=== PATIENT | female | born 1995 | race Caucasian/White ===

== ENCOUNTER 2020-10-03 17:41 | Emergency (ER) | payer BC, SELFPAY ==
[2020-10-03 20:35] VITALS: BP 147/108; PULSE 96; RESP 18; TEMP 36.6; O2SAT 99; BMI 57.4
--- NOTE | 2020-10-03 21:11 | ED.WOUNDLAC ---
HPI - Wound/Laceration General Chief Complaint: Wound/Laceration Stated Complaint: laceration Time Seen by Provider: 10/03/20 21:06 Source: patient Mode of arrival: ambulatory History of Present Illness HPI narrative: This is a 25-year-old female who presents after sustaining a laceration to the palmar MTP of the left index finger while cutting of lower. She states her last tetanus was in 2012. She denies any numbness or tingling into the distal aspect of the left index finger Related Data Allergies Allergy/AdvReac Type Severity Reaction Status Date / Time No Known Allergies Allergy Verified 10/03/20 21:16 Review of Systems Review of Systems: Pertinent positives and negatives as stated in HPI 10 point review systems otherwise negative. PMFSH Past Medical History Source: nursing notes reviewed Medical History Depression Herpes genitalia Hypertension Social History Social History Smoking Status: Never smoker Use of substances other than those prescribed or required for medical reasons: No Advance Directives: No Advance Directives Information Provided: Yes Physical Exam Vital Signs: Vital Signs: Last Vital Signs Temp 97.8 F 10/03/20 20:35 Pulse 96 10/03/20 20:35 Resp 18 10/03/20 20:35 BP 147/108 H 10/03/20 20:35 Pulse Ox 99 10/03/20 20:35 Body Mass Index 57.4 VITAL SIGNS: Reviewed. GENERAL: Well developed, well nourished, in no acute distress. OROPHARYNX: no oral lesions noted, posterior pharynx clear and non-erythematous without noted tonsillar enlargement/erythema/exudates NECK: Supple, no adenopathy LUNGS: Normal breath sounds. No adventitious sounds or accessory muscle use. SpO2<99> CARDIOVASCULAR: Regular rate and rhythm without noted murmurs, no JVD or lower extremity edema. ABDOMEN: Soft, non-tender, non-distended with bowel sounds. No rigidity. No guarding. No palpable masses or hernias noted EXTREMITIES: 3 cm laceration to the palmar MCP of the left index finger, hemostatic, capillary refill less than 3 seconds, full range of motion. SKIN: 3 cm laceration, hemostatic, NEUROLOGIC: Alert and oriented x 4. Sensation intact in the left distal index finger Course Course Course Narrative: This is a 25-year-old female with history and clinical presentation this is with simple laceration, 3 cm to the left index finger base. For patient received Tdap and laceration was repaired please see procedure note for details. Procedures Laceration Laceration 1: Site: hand (Base, palmar, left index finger) Side (If applicable): left Size (cm): 3 Description: linear Depth: simple, single layer Local Anesthetic: lidocaine 2% Amount of anesthesia used (mL): 2 Pre-repair: wound explored, irrigated extensively and deep structures intact Skin layer closed with: nylon Size (cm): 4-0 Number of sutures: 6 Technique: simple, interrupted (3), horizontal mattress (3) and other Discharge Plan Discharge Clinical Impression: Laceration Patient Disposition: Home, Self-Care Instructions: Care For Your Stitches (ED), Finger Laceration (ED) Additional Instructions: 1. Tylenol 1000 mg, orally, every 6 hours as needed for pain control. Do not exceed 4000 mg within 24 hours. 2. Ibuprofen 400 mg, orally with milk or food, every 6 hours as needed for pain control. 3. May cleanse area with soap and water and blot dry, wear gloves as appropriate for your job. 4. Return to either your primary care provider or this emergency department in 5 -7 days for suture removal. You had 3 retention sutures and 3 interrupted sutures placed today for a total of 6. Please return to the emergency department should you notice any redness swelling or discharge. 5. You received the Tdap vaccine today. The patient and/or family acknowledge understanding of results (as applicable), diagnosis, treatment plan, need for follow up, and symptoms that should prompt a return to the emergency room. Referrals: Cyndi Holm MD [Primary Care Provider] - 2 days (Re-evaluation and management of suture removal in 5-7 days.)
[2020-10-03] MEDS: Lidocaine HCl 2 % MPF 5 ML VIAL INFILTRATI (21:15)
--- NOTE | 2020-10-03 21:19 | PC.NURSE ---
pt states has covid vaccine 1 week ago. pt had question about tdap having interaction. Dr Renae aware. tdap not given. Waiting for Dr Renae to ok tdap.
--- NOTE | 2020-10-03 21:56 | PC.NURSE ---
DRESSED WOUND. KERLEX AND BACITRACIN APPLIED. PATIENT GIVEN SOME SUPPLIES FOR HOME.
[2020-10-03] MEDS: Bacitracin Oint 14 GM TUBE 1 APPL TOPICAL (22:07)
== END 2020-10-03 22:29 | disposition home or self-care (01) ==
PROVIDERS: Emergency Provider Student in an Organized Health Care Education/Training Program; PCP Internal Medicine
DX: S61.211A Laceration without foreign body of left index finger without damage to nail, initial encounter (principal); W26.9XXA Contact with unspecified sharp object(s), initial encounter; Y93.9 Activity, unspecified; Y92.9 Unspecified place or not applicable; Y99.9 Unspecified external cause status
CPT/HCPCS: 12002; 90471; 90715; 99284

== ENCOUNTER 2020-10-10 11:09 | Emergency (ER) | payer BC, SELFPAY ==
[2020-10-10 12:19] VITALS: PULSE 90; RESP 16; TEMP 37.1; O2SAT 97; BMI 56.9
--- NOTE | 2020-10-10 12:21 | ED.WOUNDLAC ---
HPI - Wound/Laceration General Chief Complaint: General Medical Stated Complaint: suture removal Time Seen by Provider: 10/10/20 12:18 Source: patient Mode of arrival: ambulatory Limitations: no limitations History of Present Illness HPI narrative: 25-year-old female here for suture removal. The patient tells me she was here 7 days ago for 6 stitches placed in the left hand. No complaints. No fevers or chills. Onset (ago): week(s) (1 week) Extremity Location: left: hand Place: home Patient tetanus UTD: Yes Associated symptoms: none Related Data Allergies Allergy/AdvReac Type Severity Reaction Status Date / Time No Known Allergies Allergy Verified 10/03/20 21:16 Review of Systems Review of Systems: Yes all other systems are reviewed and are negative Constitutional: Constitutional: Reports no additional constitutional complaints, Denies body ache(s), Denies chills, Denies fever(s), Denies headache(s) and Denies weakness Eyes: Eyes: Reports no additional eye complaints and Denies change in vision ENT: Reports system reviewed and no additional complaints, except as documented, Denies dizziness, Denies headache(s), Denies nasal congestion, Denies nasal discharge and Denies neck pain Cardiovascular: Cardiovascular: Reports no additional cardiovascular complaints, Denies chest pain, Denies leg edema and Denies dyspnea Respiratory: Respiratory: Reports no additional respiratory complaints, Denies cough and Denies dyspnea Gastrointestinal: Gastrointestinal: Reports no additional gastrointestinal complaints, Denies abdominal pain, Denies diarrhea, Denies nausea and Denies vomiting Genitourinary: Genitourinary: Reports no additional female genitourinary complaints and Denies urinary incontinence Musculoskeletal: Musculoskeletal: Reports no additional musculoskeletal complaints, Denies back pain, Denies arthralgias, Denies joint swelling, Denies neck pain, Denies numbness and Denies tingling Integumentary/Breasts: Skin/Breast: Reports system reviewed and no additional complaints, except as docu and Denies rash Neurologic: Denies Abnormal speech present, Denies dizziness, Denies headache(s), Denies numbness, Denies tingling and Denies weakness PMFSH Past Medical History Attestation statement: The following information was validated with the patient. Source: old records reviewed and nursing notes reviewed Medical History Depression Herpes genitalia Hypertension Social History Social History Alcohol intake: never Smoking Status: Never smoker Use of substances other than those prescribed or required for medical reasons: No Advance Directives: No Advance Directives Information Provided: No Physical Exam Vital Signs: Vital Signs: Last Vital Signs Temp 98.8 F 10/10/20 12:19 Pulse 90 10/10/20 12:19 Resp 16 10/10/20 12:19 Pulse Ox 97 10/10/20 12:19 Body Mass Index 56.9 Const: General: cooperative, healthy appearing, comfortable and no acute distress Orientation/consciousness: patient oriented x3 Limitations: no limitations HENMT: Head: Yes normal to inspection Ears: hearing grossly normal bilaterally General nose exam: Normal external nose present Face and sinus: Yes normal facial exam Mouth: Normal oral and palatal mucosa present Throat: Yes posterior oropharynx normal Eyes: General: appearance normal, both eyes and all related structures Pupils: Equal, round and reactive pupils present Neck: Neck: Yes normal visual inspection Chest: Chest palpation & inspection: normal inspection of the chest Resp: Effort & Inspection: normal respiratory effort Auscultation: clear to auscultation bilaterally Cardio: Rate: regular rate Rhythm: regular rhythm Peripheral pulses: Peripheral pulses 2+ throughout GI: Inspection: Yes normal to inspection Palpation (GI): Soft to palpation and nontender Auscultation: normal bowel sounds Back/Spine/Pelvis: Thoracic/Lumbar Spine: thoracic and lumbar spine normal to inspection Skin: Other: At the base of the 4th and 5th digits on the palmar aspect there is a healing incision with sutures. No erythema, drainage General skin exam: no rashes or lesions noted Neuro: General: patient oriented x3, no focal motor deficits and normal sensation to monofilament Cranial nerves: Yes Equal, round and reactive pupils present Cognition (Neuro): normal cognition Speech: No Abnormal speech present Gait exam (Neuro): Normal gait present Motor exam (neuro): 5/5 motor strength present throughout Extrem: General: Yes normal to inspection Course Course Course Narrative: Six sutures removed in the left hand. Mild bleeding noted. Controlled with direct pressure. Wound was cleansed with alcohol and a bandage was applied. Reviewed worrisome signs and symptoms and when to return to the emergency department. Comfortable discharge home. Discharge Plan Discharge Clinical Impression: Visit for suture removal Patient Disposition: Home, Self-Care Instructions: Stitches Removal (ED) Additional Instructions: wash with soap and water daily topcal antibiotic ointment Referrals: Cyndi Holm MD [Primary Care Provider] - 2 days Interventions: ED Discharge Assessment Last Done: 10/10/20 12:32 Discharge Date/Time: 10/10/20 12:34
== END 2020-10-10 12:34 | disposition home or self-care (01) ==
LOC: HO.ED 12:33
PROVIDERS: Emergency Provider Emergency Medicine; PCP Internal Medicine
DX: Z48.02 Encounter for removal of sutures (principal)
CPT/HCPCS: 99283; 99284

== ENCOUNTER → 2021-02-13 08:23 | Outpatient (BNVA) | payer BC, SELFPAY | PROVIDERS: PCP Internal Medicine; Visit Provider Physician Assistant ==

== ENCOUNTER 2021-02-27 10:16 | Outpatient (REF) | payer BC, SELFPAY ==
[2021-02-27 11:19] LABS: MANUAL DIFF FLAG NO
[2021-02-27 12:01] LABS: Basophils Percent Auto 0.4 % (0-2); Eosinophils Absolute Auto 0.4 X10*3/uL (0.0-0.4); Eosinophils Percent Auto 5.2 % (0-4); Hematocrit 39.9 % (37-47); Hemoglobin 12.7 g/dl (12.0-16.0); Imm Gran Abs Auto 0.02 X10*3/uL (0.00-0.03); Imm Gran Pct Auto 0.3 % (0.0-0.4); Lymphocytes Absolute Auto 2.1 X10*3/uL (1.2-4.9); Lymphocytes Percent Auto 26.8 % (20-40); Mean Corpuscular HGB Conc 31.8 g/dl (31.0-35.0); Mean Corpuscular Hemoglobin 27.4 pg (27.0-33.0); Monocytes Absolute Auto 0.4 X10*3/uL (0.1-1.2); Monocytes Percent Auto 5.7 % (2-11); Neutrophils Absolute Auto 4.8 X10*3/uL (2.0-8.3); Neutrophils Percent Auto 61.6 % (45-73); Platelet Count 427 X10*3/uL (160-400); Red Blood Count 4.64 X10*6/uL (4.20-5.50); Red Cell Distribution Width 13.5 % (11.0-16.0); White Blood Count 7.7 X10*3/uL (4.8-10.8)
[2021-02-27 12:09] LABS: Alanine Aminotransferase 49 U/L (0-31); Albumin Level 4.3 g/dL (3.5-5.0); Alkaline Phosphatase 82 U/L (39-117); Anion Gap 12 (12-20); Aspartate Amino Transferase 21 U/L (5-31); Bilirubin Total 0.6 mg/dL (0.0-1.0); Blood Urea Nitrogen 11 mg/dL (9-16); C Reactive Protein 0.75 mg/dL (< or = 0.50); Calcium 9.4 mg/dL (8.4-10.2); Carbon Dioxide 24 mmol/L (22-29); Chloride 106 mmol/L (96-108); Cholesterol 213 mg/dL; Estimated Glomerular Filt Rate > 60; Glucose Fasting 90 mg/dL (60-99); HDL Cholesterol 45 mg/dL; Iron 68 mcg/dL (30-160); LDL Cholesterol Calculated 149 mg/dl; Percent Iron Saturation 20 % (15-50); Potassium 4.4 mmol/L (3.3-5.1); Sodium 138 mmol/L (135-145); Total Iron Binding Capacity 336 mcg/dL (228-428); Total Protein 6.7 g/dL (6.5-8.0); Triglycerides 95 mg/dL; Unsaturated Iron Binding 268 ug/dL
[2021-02-27 12:13] LABS: Ferritin 40 ng/mL (10-122); TSH reflex Free T4 1.98 uIU/mL (0.32-4.0); Vitamin D 25-OH Total 26.5 ng/mL (>30)
[2021-02-27 12:21] LABS: Estimated Average Glucose 108 mg/dL; Hemoglobin A1c % 5.4 %
[2021-02-27 13:32] LABS: Folate > 20.0 ng/mL (> or = 4.0); Vitamin B12 477 pg/mL (200-900)
[2021-02-28 18:56] LABS: Insulin Level Total 13.4 uIU/mL
[2021-03-01 13:32] LABS: Calcium (PTHI) 9.6 mg/dL (8.6-10.2); PTHI 28 pg/mL (14-64)
[2021-03-02 19:02] LABS: Vitamin B1 15 nmol/L (8-30)
[2021-03-02 19:52] LABS: Zinc 100 mcg/dL (60-130)
[2021-03-02 20:37] LABS: Vitamin A 41 mcg/dL (38-98)
== END 2021-02-27 10:17 | disposition home or self-care (01) ==
LOC: HO.LAB 10:16
PROVIDERS: Absent Provider Internal Medicine; PCP Internal Medicine; Visit Provider Physician Assistant
DX: E66.01 Morbid (severe) obesity due to excess calories (principal); Z68.43 Body mass index [BMI] 50.0-59.9, adult
CPT/HCPCS: 36415; 80053; 80061; 82306; 82607; 82728; 82746; 83036; 83525; 83540; 83970; 84425; 84443; 84590; 84630; 85025; 86140

== ENCOUNTER → 2021-03-13 09:12 | Outpatient (BNVA) | payer BC, SELFPAY | PROVIDERS: PCP Internal Medicine; Visit Provider Dietitian, Registered | DX: E66.01 Morbid (severe) obesity due to excess calories (principal); Z68.43 Body mass index [BMI] 50.0-59.9, adult | CPT/HCPCS: 97802 ==

== ENCOUNTER 2022-07-14 10:27 | Emergency (ER) | payer OTHER, SELFPAY ==
[2022-07-14 10:31] VITALS: BP 183/93; PULSE 127; RESP 20; TEMP 36.4; O2SAT 97; BMI 57.1
--- NOTE | 2022-07-14 10:38 | PC.NURSE ---
ICE PACK GIVEN
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
[2022-07-14 11:56] VITALS: BP 149/80; PULSE 128; RESP 18; O2SAT 97
== END 2022-07-14 12:41 | disposition home or self-care (01) ==
PROVIDERS: Emergency Provider Emergency Medicine
DX: G89.11 Acute pain due to trauma (principal); M79.604 Pain in right leg
CPT/HCPCS: 73562; 99282; 99283

== ENCOUNTER 2022-07-30 08:21 | Outpatient (REF) | payer OTHER, SELFPAY ==
--- NOTE | ~2022-07-30 | XR_ITS ---
EXAMINATION: XR KNEE AP STANDING CLINICAL INFORMATION: Pain in right COMPARISON: 07/14/2022 TECHNIQUE: AP bilateral standing view of the knees and sunrise view of right knee was obtained. FINDINGS: Bones are well-mineralized there is mild narrowing of medial compartment of right knee joint and there is mild narrowing of lateral compartment of patellofemoral joint. XR/XR knee standing BI IMPRESSION: Mild changes as reported.
--- NOTE | ~2022-07-30 | XR_ITS ---
EXAMINATION: XR KNEE AP STANDING CLINICAL INFORMATION: Pain in right COMPARISON: 07/14/2022 TECHNIQUE: AP bilateral standing view of the knees and sunrise view of right knee was obtained. FINDINGS: Bones are well-mineralized there is mild narrowing of medial compartment of right knee joint and there is mild narrowing of lateral compartment of patellofemoral joint. XR/XR knee RT 1V IMPRESSION: Mild changes as reported.
== END 2022-07-30 08:22 | disposition home or self-care (01) ==
LOC: HO.HOSX 08:21
PROVIDERS: Visit Provider Physician Assistant
DX: M25.561 Pain in right knee (principal); M25.562 Pain in left knee
CPT/HCPCS: 73560; 73565

== ENCOUNTER 2022-12-05 07:00 | Outpatient (RCR) | payer OTHER, SELFPAY ==
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
--- NOTE | 2022-12-05 09:42 | MHC.PT.DC ---
[facility] [place] [facility] [place] Office [address] Vicente Edmondson [address] [phone] F: [phone] F: [phone] F: [phone] F: [phone] Physical Therapy Discharge Report Diagnosis: PF DISORDER OF RIGHT KNEE Date of Surgery: Date of Evaluation: 11/15/22 Date of Discharge: 12/05/22 Treatments to Date: 7 Cancellations to Date: 0 No Shows to Date: 0 Discharge Status: Achieved Goals Improved Function Independent with HEP Patient Elected to Stop Discharge Summary: Pt HAS PROGRESSED WELL IN PT FOR HER Rt KNEE PFPS-> SHE HAS IMPROVED STRENGTH, AROM, FLEXIBILITY, AND MOST IMPORTANTLY, SHE HAS IMPROVED FUNCTIONAL MOBILITY AND IS MOTIVATED TO CONT W HER FITNESS ROUTINE. AT THIS TIME THE Pt IS REQUESTING D/C FROM PT DUE TO HER INSURANCE CO-PAY WELL HER TIGHT WORK/ SCHOOL SCHEDULES. HER LEFI SCORE CONFIRMS SIGNIF PROGRESS-> IT WAS 32/80 AT EVAL (11/15/22) AND TODAY AT D/C, 50/80. Electronically signed by: LUIS FELIPE VALENCIA,PT Please sign and return to therapist. Thank you for your referral.
== END 2022-12-05 09:43 | disposition home or self-care (01) ==
LOC: HO.PT 07:00
PROVIDERS: Visit Provider Physician Assistant
DX: M22.2X1 Patellofemoral disorders, right knee (principal)
CPT/HCPCS: 97110; 97140; 97162

== ENCOUNTER → 2023-02-22 07:55 | Outpatient (BNVA) | payer OTHER, SELFPAY | PROVIDERS: Visit Provider Physician Assistant ==

== ENCOUNTER 2023-03-19 07:30 | Outpatient (REF) | payer OTHER, SELFPAY ==
[2023-03-21 11:42] LABS: H Pylori Breath Test Negative (Negative)
== END 2023-03-19 07:31 | disposition home or self-care (01) ==
LOC: HO.LNP 07:30
PROVIDERS: Visit Provider Physician Assistant
DX: Z01.818 Encounter for other preprocedural examination (principal); E66.01 Morbid (severe) obesity due to excess calories; I10 Essential (primary) hypertension; F39 Unspecified mood [affective] disorder; Z87.42 Personal history of other diseases of the female genital tract
CPT/HCPCS: 83013

== ENCOUNTER → 2023-03-19 12:56 | Outpatient (BNVA) | payer OTHER, SELFPAY | PROVIDERS: Visit Provider Physician Assistant ==

== ENCOUNTER → 2023-04-12 08:45 | Outpatient (BNVA) | payer OTHER, SELFPAY | PROVIDERS: Visit Provider Dietitian, Registered | DX: E66.01 Morbid (severe) obesity due to excess calories (principal); Z71.3 Dietary counseling and surveillance | CPT/HCPCS: 97802 ==

== ENCOUNTER 2023-04-16 09:06 | Outpatient (AMB) | payer OTHER, SELFPAY ==
--- NOTE | 2023-04-16 08:30 | A.OFFVIS_ITS ---
Intake VS Expanded 04/16/23 08:52 Height 5 ft 4 in Weight 356 lb BMI 61.1 Intake Visit Reasons: VIDEO F/U SWL Allergies No Known Allergies Allergy (Verified 03/19/23 14:10) HPI HPI Comments History of Present Illness Details This is the patients second appt for SWL. Starting weight was 356.8 lbs on 03/19/23. TBWL is 6 lbs. Meal plan: 8am - Ensure Herb or bar 10am - either bar or shake - alternates with 8am 12:30- Ensure Herb 3:30 - Ensure Herb 7pm - last night had cheeseburgers with rolls and chip, chips (doesn't know what to eat) After dinner - still having ice cream OR yogurt container and blueberries Exercise plan: M, W, F at gym. Treadmill or Elliptical or Bike . Treadmill ? calories or any info.PF - around circuit room, UE - 30- 80, 2 sets of 15. Pre op work up completed as follows: SWL classes - appts - Jagruti April 19, states has not seen a therapist for a long time. RD appts - needs follow up H pylori - negative Labs, CXR and ECG - not done yet ULS and UGI - May 22 [facility] Medical History BMI 50.0-59.9, adult Depression Herpes genitalia Hx of pilonidal cyst Hypertension Morbid obesity Vitamin B12 deficiency Vitamin D deficiency Surgical History History of surgical removal of pilonidal cyst Hx of oral surgery Hx of wisdom tooth extraction Family History Mother Hypertension Depression Hyperlipidemia Father No problems noted. Brother No problems noted. Daughter No problems noted. 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 States doesn't know what to eat. I recommended that she review the nutrition classes again and discussed lean protein options ad vegetables with her. Exercise - changed to cardio - elliptical her choice, 4d/ week for a t least [address] exercise to 15 reps, 3 sets but lower the weight she is using. When asked about when she plans to get the labs and such done - i have no idea . We discussed that she needs to get them done UGO. Other appts reviewed with her. Next appt scheduled with aggie 3 weeks. Patient is still morbidly obese and is not considered stable at this time. I spent 30 minutes in total speaking with the patient via video conference counseling , reviewing records and charting in patients chart. . (2) Mood disorder: Code(s): F39 - Unspecified mood [affective] disorder Telehealth Telehealth Location of provider rendering services: practice address Location of patient: address on file Patient Identification confirmed using: Name, : Yes Telehealth method: video Patient verbally consented to treatment: Yes Patient verbally consented to billing insurance company: Yes Patient informed of any privacy concerns related to visit: Yes Coding Level of Care Code Tele Est Pt Level 4 (01915) Diagnoses Morbid obesity E66.01 Mood disorder F39
[2023-04-16 08:52] VITALS: BMI 61.1
== END 2023-04-16 09:07 | disposition home or self-care (01) ==
LOC: HO.HBS 09:06
PROVIDERS: Visit Provider Physician Assistant
DX: E66.01 Morbid (severe) obesity due to excess calories (principal); Z68.44 Body mass index [BMI] 60.0-69.9, adult; F39 Unspecified mood [affective] disorder
CPT/HCPCS: 99214

== ENCOUNTER → 2023-04-16 09:06 | Outpatient (BNVA) | payer OTHER, SELFPAY | PROVIDERS: Visit Provider Physician Assistant | DX: E66.01 Morbid (severe) obesity due to excess calories (principal); F39 Unspecified mood [affective] disorder ==

== ENCOUNTER 2023-04-19 08:18 | Outpatient (REF) | payer OTHER, SELFPAY ==
--- NOTE | ~2023-04-19 | XR_ITS ---
EXAMINATION: XR CHEST CLINICAL INFORMATION: Morbid obesity. COMPARISON: None available. TECHNIQUE: 2 views of the chest were obtained. FINDINGS: No significant abnormality is noted involving the heart, lungs, mediastinum, bony thorax or soft tissues. XR/XR chest 2V IMPRESSION: Unremarkable examination.
--- NOTE | 2023-04-19 08:26 | ECG_ITS ---
Test Reason : e66.01 Blood Pressure : / mmHG Vent. Rate : 074 BPM Atrial Rate : 074 BPM P-R Int : 130 ms QRS Dur : 086 ms QT Int : 388 ms P-R-T Axes : 031 058 047 degrees QTc Int : 430 ms Normal sinus rhythm Normal ECG No previous ECGs available Referred By: Laura Mendes Electronically Signed By:THAI WASHINGTON MD
[2023-04-19 08:39] LABS: MANUAL DIFF FLAG NO
[2023-04-19 09:47] LABS: Basophils Percent Auto 0.4 % (0-2); Eosinophils Absolute Auto 0.4 X10*3/uL (0.0-0.4); Eosinophils Percent Auto 4.6 % (0-4); Hematocrit 41.4 % (37.0-47.0); Hemoglobin 13.3 g/dl (12.0-16.0); Imm Gran Abs Auto 0.03 X10*3/uL (0.00-0.03); Imm Gran Pct Auto 0.4 % (0.0-0.4); Lymphocytes Absolute Auto 2.1 X10*3/uL (1.2-4.9); Lymphocytes Percent Auto 24.7 % (20-40); Mean Corpuscular HGB Conc 32.1 g/dl (31.0-35.0); Mean Corpuscular Hemoglobin 27.1 pg (27.0-33.0); Mean Corpuscular Volume 84.5 fL (80.0-98.0); Mean Platelet Volume 8.6 fL (9.4-12.3); Monocytes Absolute Auto 0.5 X10*3/uL (0.1-1.2); Monocytes Percent Auto 6.5 % (2-11); Neutrophils Absolute Auto 5.3 x10*3/uL (2.0-8.3); Neutrophils Percent Auto 63.4 % (45-73); Platelet Count 431 X10*3/uL (160-400); Red Cell Distribution Width 13.7 % (11.0-16.0); White Blood Count 8.3 X10*3/uL (4.8-10.8)
[2023-04-19 09:55] LABS: Estimated Average Glucose 108 mg/dL; Hemoglobin A1c % 5.4 %
[2023-04-19 10:47] LABS: Alanine Aminotransferase 90 U/L (0-31); Albumin Level 4.4 g/dL (3.5-5.0); Alkaline Phosphatase 75 U/L (39-117); Anion Gap 14 (12-20); Aspartate Amino Transferase 42 U/L (5-31); Bilirubin Total 0.6 mg/dL (0.0-1.0); Blood Urea Nitrogen 13 mg/dL (9-16); C Reactive Protein 1.19 mg/dL (< or = 0.50); Calcium 9.7 mg/dL (8.4-10.2); Carbon Dioxide 25 mmol/L (22-29); Chloride 105 mmol/L (96-108); Cholesterol 245 mg/dL; Estimated Glomerular Filt Rate > 60; Glucose Random 111 mg/dL (60-115); HDL Cholesterol 44 mg/dL; Iron 68 mcg/dL (30-160); LDL Cholesterol Calculated 184 mg/dl; Percent Iron Saturation 21 % (15-50); Potassium 4.3 mmol/L (3.3-5.1); Sodium 140 mmol/L (135-145); Total Iron Binding Capacity 323 mcg/dL (228-428); Total Protein 7.5 g/dL (6.5-8.0); Triglycerides 89 mg/dL; Unsaturated Iron Binding 255 ug/dL
[2023-04-19 10:57] LABS: Ferritin 82 ng/mL (10-122); TSH reflex Free T4 4.11 uIU/mL (0.32-4.0); Vitamin D 25-OH Total 54.2 ng/mL (>30)
[2023-04-19 11:08] LABS: Folate 15.3 ng/mL (> or = 4.0); Vitamin B12 734 pg/mL (200-900)
[2023-04-19 14:35] LABS: Free T4 (Free Thyroxine) 0.82 ng/dL (0.71-1.85); Insulin 23 uU/mL (2-29)
[2023-04-22 15:24] LABS: Calcium (PTHI) 9.4 mg/dL (8.6-10.2); PTHI 52 pg/mL (16-77)
[2023-04-24 05:59] LABS: Zinc 83 mcg/dL (60-130)
[2023-04-25 09:33] LABS: Vitamin B1 7 nmol/L (8-30)
[2023-04-25 17:23] LABS: Vitamin A 46 mcg/dL (38-98)
== END 2023-04-19 08:19 | disposition home or self-care (01) ==
LOC: HO.XRAY 08:18
PROVIDERS: Visit Provider Physician Assistant
DX: Z01.818 Encounter for other preprocedural examination (principal); E66.01 Morbid (severe) obesity due to excess calories; F39 Unspecified mood [affective] disorder; I10 Essential (primary) hypertension; Z87.42 Personal history of other diseases of the female genital tract
CPT/HCPCS: 36415; 71046; 80053; 80061; 82306; 82607; 82728; 82746; 83036; 83525; 83540; 83970; 84425; 84439; 84443; 84590; 84630; 85025; 86140; 93005

== ENCOUNTER → 2023-04-19 08:26 | Outpatient (BNV) | payer OTHER, SELFPAY | PROVIDERS: Visit Provider Internal Medicine Cardiovascular Disease | DX: I10 Essential (primary) hypertension (principal) | CPT/HCPCS: 93010 ==

== ENCOUNTER 2023-04-19 16:30 | Outpatient (AMB) | payer OTHER, SELFPAY ==
--- NOTE | 2023-04-19 16:32 | A.OFFWM_ITS ---
Intake Intake Visit Reasons: VIDEO BH Intake Allergies No Known Allergies Allergy (Verified 03/19/23 14:10) [facility] Medical History BMI 50.0-59.9, adult Depression Herpes genitalia Hx of pilonidal cyst Hypertension Morbid obesity Vitamin B12 deficiency Vitamin D deficiency Surgical History History of surgical removal of pilonidal cyst Hx of oral surgery Hx of wisdom tooth extraction Family History Mother Hypertension Depression Hyperlipidemia Father No problems noted. Brother No problems noted. Daughter No problems noted. 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 Initially patient was open and active, however after couple minutes she turned guarded and defensive, she was no open to provide concrete answers and therapist had to ask questions in different ways multiple times to get required answers as part of the assessment. Mental status exam is unclear as patient declined to show herself during video- call. She was also guarded about her mental health history and did not provided answers to questions asked. Pt has also denied any release/request of her medical records to confirm mental health diagnosis and/or status and when proposed a f/up as part of building rapport and facilitate support with weight-loss journey patient declined and stated that I will only consent any release or a follow up if there will be consequences or if that's the only way to get surgery . Per this encounter it is unclear about client's readiness for surgery, her current challenges with food, eating behavior, and any support or protective factors that could benefit her after surgery, thus this provider can not provide the behavioral health clearance. Presenting Concerns Referral Source WMP Provider. PT sees Laura Yung Reason for referral Completion of behavioral health assessment as part of process for weight-loss surgery. Precipitating Event Obesity. Living Situation Current Living Situation Rent Comments Pt Reported she lives with people with legs , did not describe any relationship with them when asked if they were relatives, roommates and/or if she was living in a group/supportive home. Food/Weight/Diet Expectations of change PT would like to be around 125Lbs. History/Relationship with food PT reports she doesn't have a good relationship with food. Before started the program she used to have 3 meals and eating/snacking in between meals. States her meals will vary, she loves chicken, but doesn't eat vegetables. Pt was not open to provide detailed information about meal schedule and/or example of meals or snacks. Answers were general, for example anything people eat PT did not answer clearly the 2 first questions around binge eating and stated that automobile service writer could monica she provider was comfortable with, however it was explained that answers needed to be according to patient's experience and not the provider's experience. History/Relationship with weight PT reports she has always been overweight. When she was 18 she was around 200Lbs. She's not aware of when it got out of control. History/Relationship with dieting PT states she has tried weight watchers, counting calories, exercise, talking to a mold release worker. She doesn't remember how much weight she has lost and/or for how long she sticks to the program. Binge Eating Do you eat large amounts of food rapidly and typically alone? Yes Night Eating Do you wake up at least once during the night to eat? Yes If you wake up in the night, do you find that it is necessary to eat something in order to fall back asleep? Yes Do you have little or no appetite in the morning and feel very hungry in the evening, often overeating between dinner and when you go to bed? Yes Social History Family history and relationship Single. Pt has 2 siblings Parents are alive. PT reports she has communication with her family. 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 Developmental history and status None reported. Social support Family, some friends. Community support None. Jehovah'S Witness/Spirituality Bahai. Cultural/Ethnic information Described as [place]. Legal Involvement and History Current or historical involvement with the legal system? None reported. Education Highest grade completed 12th grade. Preferred learning style Learn by doing Currently enrolled in educational program? No Interested in further educational program? Yes (When asked this question she said: sure but also said she is not sure about what to do. ) Educational Interests/Skills I have no skills Employment Employment Status [employer] (Works at [employer]. PT did not specified her role and suggested this provider to write what provider wanted about her job position.) Wants help to find employment? No Meaningful activities PT reports she doesn't have any hobbies. Financial Situation Describe current financial situation Often struggles with finance Service Service? No Mental Health and Addiction Treatment Current/Past substance abuse? No Current/Past addictive behavior concerns? No Psychiatric history PT reports she has been in therapy before but states she doesn't remember details of it and when was her last time in therapy. She did not provided information about any past hospitalizations, crisis or safety concerns. PT confirmed she takes Fluoxetine 20mg, Vyvanse 20mg (for over-eating). When asked about who prescribes her medication she said the provider to to look in the database to get access to who prescribes, however this provider explains her we don't have access, and then she denies providing with further information. PT declined any release or consent to obtain her mental health records. Medical and Physical Health Summary Additional Medical History not covered in history None reported. Sexual History concerns None reported. Pain Screening Current pain? Yes Pain in the last few months? Yes Comments When questiones about her pain she said The type of pain that hurts . When asked about where it hurts she said everywhere Medications Is the patient compliant with medications? Yes Does the patient have Arrington Guardian in place? Not applicable Does the patient use complimentary health approaches? No Trauma/Abuse History History of trauma? No Questionnaires Binge Eating Scale Group 1 A. I don't feel self-conscious about my wt. or body size when I'm with others. B. I feel concerned about how I look to others, but it normally does not make me fell disappointed with myself C. I do get self-conscious about my appearance and wt. which makes me feel disappointed in myself. D. I feel very self-conscious about my wt. and frequently I feel intense shame and disgust for myself. I try to avoid social contacts because of my self- consciousness. Response Group 1: D Group 2 A. I don't have any difficulty eating slowly in the proper manner. B. Although I seem to gobble down foods, I don't end up feeling stuffed because of eating to much. C. At times, I tend to eat quickly and then, I feel uncomfortably full afterwards. D. I have the habit of bolting down my food, without really chewing it. When this happens I usually feel uncomfortably stuffed because I've eaten to much. Response Group 2: D Group 3 A. I feel capable to control my eating urges when I want to. B. I feel like I have failed to control my eating more than the average person. C. I feel utterly helpless when it comes to feeling in control of my eating urges. D. Because I feel so helpless about controlling my eating I have become very desperate about trying to get control. Response Group 3: B Group 4 A. I don't have the habit of eating when I'm bored. B. I sometimes eat when I'm bored, but often I'm able to get busy and get my mind off food. C. I have a regular habit of eating when I'm bored, but occasionally, I can use some other activity to get my mind off eating. D. I have a strong habit of eating when I'm bored. Nothing seems to help me breath the habit. Response Group 4: D Group 5 A. I'm usually physically hungry when I eat something. B. Occasionally, I eat something on impulse even though I really am not hungry. C. I have the regular habit of eating foods, that I might not really enjoy, to satisfy a hungry feeling even though physically, I don't need the food. D. Although I'm not physically hungry, I get a hungry feeling in my mouth that only seems to be satisfied when I eat a food, like sandwich, that fills my mouth. Sometimes, when I eat the food to satisfy my mouth hunger, I then spit the food out so I won't gain weight. Response Group 5: C Group 7 A. I don't lose total control of my eating when dieting even after periods when I overeat. B. Sometimes when I eat a forbidden food on a diet, I feel like I blew it and eat even more. C. Frequently, I have the habit of saying to myself, I've blown it now, why not go all the way, when I overeat on a diet. When that happens I eat more. D. I have a regular habit of starting a strict diets for myself but I break the diets by going on an eating binge. My life seems to be either a feast or famine. Response Group 7: C Group 8 A. I rarely eat so much food that I feel uncomfortably stuffed afterwards. B. Usually about once a month, I each such a quantity of food, I end up feeling very stuffed. C. I have regular periods during the month when I eat large amounts of food, either at mealtime or at snacks. D. I eat so much food that I regularly feel quite uncomfortable after eating and sometimes a bit nauseous. Response Group 8: C Group 9 A. My level of calorie intake does not go up very high or go down very low on a regular basis. B. Sometimes after I overeat, I will try to reduce my caloric intake to almost nothing to compensate for the excess calories I've eaten. C. I have a regular habit of overeating during the night. It seems that my routine is not to be hungry in the morning but overeat in the evening. D. In my adult years, I have had week-long periods where I practically starve myself. This follows periods when I overeat. It seems I live a life of either feast or famine. Response Group 9: C Group 10 A. I usually am able to stop eating when I want to. I know when enough is enough. B. Every so often, I experience a compulsion to eat which I can't seem to control. C. Frequently, I experience strong urges to eat which I seem unable to control, but at other times I can control my eating urges. D. I feel incapable of controlling urges to eat. I have a fear of not being able to stop eating voluntarily. Response Group 10: D Group 11 A. I don't have any problem stopping eating when I feel full. B. I usually can stop eating when I feel full but occasionally overeat leaving me feeling uncomfortably stuffed. C. I have a problem stopping eating once I start and usually I feel uncomfortably stuffed after I eat a meal. D. Because I have a problem not being able to stop eating when I want, I sometimes have to induce vomiting to relieve my stuffed feeling. Response Group 11: C Group 12 A. I seem to eat just as much when I'm with others, Family social gatherings as when I'm by myself. B. Sometimes, when I'm with other persons, I don't eat as much as I want to eat because I'm self-conscious about my eating. C. Frequently, I eat only a small amount of food when others are present, because I'm very embarrassed about my eating. D. I feel so ashamed about overeating that I pick times to overeat when I know no one will see me. I feel like a closet eater. Response Group 12: D Group 13 A. I eat three meals a day with only an occasional between meal snack. B. I eat 3 meals a day, but I also normally snack between meals. C. When I am snacking heavily, I get in the habit of skipping regular meals. D. There are regular periods when I seem to be continually eating, with no planned meals. Response Group 13: D Group 14 A. I don't think much about trying to control unwanted eating urges. B. At least some of the time, I feel my thoughts are pre-occupied with trying to control my eating urges. C. I feel that frequently I spend much time thinking about how much I ate or about trying not to eat anymore. D. It seems to me that most of my waking hours are pre-occupied by thoughts about eating or not eating. I feel like I'm constantly struggling not to eat. Response Group 14: D Group 15 A. I don't think about food a great deal. B. I have strong craving for food but they last only for brief periods of time. C. I have days when I can't seem to think about anything else but food. D. Most of my days seem to be pre-occupied with thoughts about food. I feel like I live to eat. Response Group 15: D Group 16 A. I usually know whether or not I'm physically hungry. I take the right portion of food to satisfy me. B. Occasionally, I feel uncertain about knowing whether or not I'm physically hungry. A these times it's hard to know how much food I should take to satisfy me. C. Even though I might know how many calories I should eat, I don't have any idea what is a normal amount of food for me. Response Group 16: C Binge Eating Score: 37 Score less than 17 Minimal Risk Score between 18-26 Moderate Risk Score between 27-46 High Risk Assessment & Plan Assessment & Plan (1) Mood disorder: Code(s): F39 - Unspecified mood [affective] disorder (2) Eating disorder: Code(s): F50.9 - Eating disorder, unspecified Qualifiers: Eating disorder type: binge eating disorder Qualified Code(s): F50.81 - Binge eating disorder Plan PT declined another session and declined any consent to request/exchange any medical record. At this time patient is not cleared and a team consultation will be needed to explore if our program will fit patient's needs. Telehealth Telehealth Location of provider rendering services: other (Home address. [place], [place]) Location of patient: address on file Patient Identification confirmed using: Name, : Yes Telehealth method: video Patient verbally consented to treatment: Yes Patient verbally consented to billing insurance company: Yes Patient informed of any privacy concerns related to visit: Yes Minutes spent on Phone/Video with Pt.: 60 Coding Level of Care Code New Pt Tele Psy Diag Barb ([id number]) Patient Type New Diagnoses Mood disorder F39 Eating disorder F50.81 Eating disorder type: binge eating disorder Time Spent (min) 60 Comment 4:30-5:30pm
== END 2023-04-19 17:30 ==
LOC: HO.HBST 04-22 08:00
PROVIDERS: Referring Provider Physician Assistant; Visit Provider Counselor Mental Health
DX: F39 Unspecified mood [affective] disorder (principal); F50.81 Binge eating disorder
CPT/HCPCS: 90791

== ENCOUNTER 2023-08-16 09:50 | Outpatient (AMB) | payer OTHER, SELFPAY ==
[2023-08-16 10:15] VITALS: BP 120/78; PULSE 66; TEMP 36.3; O2SAT 97; BMI 61.5
--- NOTE | 2023-08-16 10:15 | MHC.OFFWIV ---
Intake Vital Signs 08/16/23 10:15 Height 5 ft 4 in Weight 358 lb 4 oz BMI 61.5 BP 120/78 Blood Pressure Location Rt brachial Position Sitting Pulse 66 Pulse Source Pulse Oximeter Temp 97.3 F Temp Source Temporal Artery Scan Pulse Oximetry (%) 97 Oxygen Delivery Method Room Air Intake Visit Reasons: EST/genital discomfort(lobby) Intake Note: pt is here for c/o genital discomfort, possible uti or yeast Patient Tobacco Use Status: Never used Tobacco Allergies No Known Allergies Allergy (Verified 08/16/23 10:17) Do you need a note to return to daycare/school/sports/work: Yes HPI HPI Comments History of Present Illness Details The patient presents to urgent care for evaluation of vaginal itching. She is concerned she may have a yeast infection as she recently completed a course of antibiotics. She denies vaginal discharge. In addition patient complains of some mild dysuria and urinary frequency. She is questioning if she may have a UTI as well. [facility] Medical History BMI 50.0-59.9, adult Depression Herpes genitalia Hx of pilonidal cyst Hypertension Morbid obesity Vitamin B12 deficiency Vitamin D deficiency Surgical History History of surgical removal of pilonidal cyst Hx of oral surgery Hx of wisdom tooth extraction Family History Mother Hypertension Depression Hyperlipidemia Father No problems noted. Brother No problems noted. Daughter No problems noted. 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 Review of Systems Const Denies headache(s) ENT Denies headache(s) GI Denies abdominal pain and Denies diarrhea Denies difficulty voiding, Denies pelvic pain and Reports vaginal odor Neuro Denies headache(s) Physical Exam Vital Signs: Last Vital Signs Temp 97.3 F 08/16/23 10:15 Pulse 66 08/16/23 10:15 BP 120/78 08/16/23 10:15 Pulse Ox 97 08/16/23 10:15 Oxygen Delivery Method Room Air 08/16/23 10:15 BMI result Body Mass Index 61.5 Const General: healthy appearing and no acute distress HEENT Head: Yes normal to inspection Resp Effort & Inspection: normal respiratory effort and able to speak in complete sentences GI Inspection: Yes normal to inspection Results AMB Urinalysis, Automated UA Leukoctes 125 Nasreen/uL Last Edit by Hilda Pickens CMA on 08/16/23 10:35 UA Nitrite Negative Last Edit by Hilda Pickens, VLAD on 08/16/23 10:35 UA Urobilinogen 0.2 mg/dL Last Edit by Hilda Pickens, VLAD on 08/16/23 10:35 UA Protein 0 mg/dL Last Edit by Hilda Pickens, VLAD on 08/16/23 10:35 UA pH 6.5 Last Edit by Hilda Pickens, VLAD on 08/16/23 10:35 UA Blood 25 Donald/uL Last Edit by Hilda Pickens, VLAD on 08/16/23 10:35 UA Specific Mcdermott 1.015 Last Edit by Hilda Pickens, VLAD on 08/16/23 10:35 UA Ketone Negative Last Edit by Hilda Pickens, VLAD on 08/16/23 10:35 UA Bilirubin 0 mg/dL Last Edit by Hilda Pcikens, VLAD on 08/16/23 10:35 UA Glucose 0 mg/dL Last Edit by Hilda Pickens, VLAD on 08/16/23 10:35 Results Reviewed Results Reviewed: Laboratory Last Values Urine pH (Auto) 6.5 08/16/23 10:33 Specific Mcdermott (Auto) 1.015 08/16/23 10:33 Urine Protein (Auto) 0 mg/dL 08/16/23 10:33 Glucose (UA)(Auto) 0 mg/dL 08/16/23 10:33 Urine Ketones (Auto) Negative 08/16/23 10:33 Urine Blood (Auto) 25 Donald/uL 08/16/23 10:33 Urine Nitrite (Auto) Negative 08/16/23 10:33 Urine Bilirubin (Auto) 0 mg/dL 08/16/23 10:33 Urine Urobilinogen (Auto) 0.2 mg/dL 08/16/23 10:33 Leukocyte Esterase (Auto) 125 Nasreen/uL 08/16/23 10:33 Assessment & Plan Assessment & Plan (1) Vaginal discomfort: Code(s): N94.9 - Unspecified condition associated with female genital organs and menstrual cycle Plan The urine dip was not definitive for UTI. Will send urine for culture as well as BV swab. Patient will await results prior to treatment and is comfortable with this plan. Orders: Orders Bacterial Vaginosis Panel Today N89.8 - Other specified noninflammatory disorders of vagina AMB Urinalysis Automated Today Z13.9 - Encounter for screening, unspecified Urine Culture Today R30.0 - Dysuria Coding Level of Care Code Est Pt Level 3 (04319) Diagnoses Vaginal discomfort N94.9
== END 2023-08-16 11:06 | disposition home or self-care (01) ==
PROVIDERS: Visit Provider Emergency Medicine
DX: N94.9 Unspecified condition associated with female genital organs and menstrual cycle (principal); R30.0 Dysuria
CPT/HCPCS: 81003; 99213

== ENCOUNTER 2023-08-16 11:14 | Outpatient (REF) | payer OTHER, SELFPAY ==
[2023-08-17 12:40] LABS: BV Int Neg Control Negative (Negative); BV Int Pos Control Positive (Positive)
== END 2023-08-16 11:15 | disposition home or self-care (01) ==
LOC: HO.LAB 11:14
PROVIDERS: Visit Provider Emergency Medicine
DX: R30.0 Dysuria (principal); N89.8 Other specified noninflammatory disorders of vagina
CPT/HCPCS: 87086; 87480; 87510; 87660